=== PATIENT | male | born 1970 | race Hispanic/Latino ===

== ENCOUNTER 2023-01-24 03:05 | Emergency (ER) | payer BC, SELFPAY ==
[2023-01-24] MEDS ORDERED: Lorazepam 1 MG TAB ONE (04:09)
[2023-01-24 04:35] LABS: #Eosinphils 0.1 thou/uL (0.0-0.7); #Monocytes 0.8 thou/uL (0.11-0.59); #Neutrophils 4.8 thou/uL (1.40-6.50); %Basophils 0.5 % (0.0-1.0); %Eosinophils 1.5 % (0.0-10.0); %Lymphocytes 27.6 % (21.0-51.0); %Neutrophils 59.8 % (42.0-75.0); Hematocrit 43.1 % (42.0-52.0); Hemoglobin 14.8 g/dL (14.0-18.0); Mean Corpuscular HGB CONC 34.3 g/dL (32.0-36.0); Mean Corpuscular Hemoglobin 32.4 pg (27.0-31.0); Mean Corpuscular Volume 94.3 fl (78.0-98.0); Mean Platelet Volume 11.4 fL (7.4-10.4); Platelet Count 209 10x3/uL (130-400); RBC Distribution Width 12.8 % (11.5-14.5); Red Blood Cell (RBC) Count 4.57 mill/uL (4.70-6.10)
[2023-01-24 05:00] LABS: ALT (SGPT) 52 U/L (8-55); AST (SGOT) 39 U/L (5-34); Albumin 4.7 g/dL (3.5-5.0); Alkaline Phosphatase 93 U/L (40-110); Anion Gap 16 mmol/L (10-20); BUN (Urea Nitrogen) 18 mg/dL (8.4-25.7); Bilirubin, Total 0.4 mg/dL (0.2-1.2); Calc. Creatinine Clearance 0 mL/min (70-130); Carbon Dioxide 23 mmol/L (22-29); Chloride 102 mmol/L (98-107); Estimated GFR 64; Globulin 3.5 g/dL (2.4-3.5); Glucose 169 mg/dL (70-105); Potassium 3.8 mmol/L (3.5-5.1); Protein, Total 8.2 g/dL (6.0-8.3); Sodium 137 mmol/L (136-145)
[2023-01-24 05:04] LABS: Troponin I Less than 0.010 ng/mL (< 0.028)
== END 2023-01-24 05:34 | disposition home or self-care (01) ==
LOC: ERS 03:05
DX: R06.00 Dyspnea, unspecified (principal); E11.9 Type 2 diabetes mellitus without complications; I10 Essential (primary) hypertension; Z79.84 Long term (current) use of oral hypoglycemic drugs; Z79.899 Other long term (current) drug therapy
CPT/HCPCS: 36415; 71045; 80053; 83880; 84484; 85025